=== PATIENT | female | born 1960 | race Caucasian/White ===

== ENCOUNTER 2016-06-20 18:40 | Emergency (ER) | payer BC ==
[2016-06-20 18:58] VITALS: BP 128/75; PULSE 72; TEMP 98; BMI 31.8
--- NOTE | 2016-06-20 19:05 | PDOC ---
History of Present Illness - General History Source: Patient Exam Limitations: No Limitations - History of Present Illness Initial Comments: 06/20/16 19:05 The patient is a 55 year old female with no significant past medical history, who presents to the with bilateral foot pain. Pt was walking across the street when she twisted her foot on the curb. Trying to gain her balance, she twsiterd her other foot. She states the left foot hurts more than the right. Otherwise, patient is healthy and has no other complaints. <Oumar Gordillo - Last Filed: 06/20/16 19:05> <Edis Garland - Last Filed: 06/21/16 00:42> - General Chief Complaint: Injury Stated Complaint: BILATERAL FOOT PAIN Time Seen by Provider: 06/20/16 19:03 Past History <Oumar Gordillo - Last Filed: 06/20/16 19:05> - Past Medical History Other medical history: DENIES - Psycho/Social/Smoking Cessation Hx Anxiety: No Suicidal Ideation: No Smoking History: Never smoked Hx Alcohol Use: No Drug/Substance Use Hx: No Substance Use Type: Alcohol <Edis Garland - Last Filed: 06/21/16 00:42> - Past Medical History Allergies/Adverse Reactions: Allergies Allergy/AdvReac Type Severity Reaction Status Date / Time No Known Allergies Allergy Verified 06/20/16 18:42 Home Medications: Ambulatory Orders No Known Home Medication 06/20/16 Review of Systems - Review of Systems Able to Perform ROS?: Yes Comments:: 06/20/16 19:07 GENERAL/CONSTITUTIONAL: No fever or chills. No weakness. HEAD, EYES, EARS, NOSE AND THROAT: No change in vision. No ear pain or discharge. No sore throat. CARDIOVASCULAR: No chest pain or shortness of breath. RESPIRATORY: No cough, wheezing, or hemoptysis. GASTROINTESTINAL: No nausea, vomiting, diarrhea or constipation. GENITOURINARY: No dysuria, frequency, or change in urination. MUSCULOSKELETAL: + bilateral foot pain. No joint or muscle swelling or pain. No neck or back pain. SKIN: No rash NEUROLOGIC: No headache, vertigo, loss of consciousness, or change in strength/ sensation. ENDOCRINE: No increased thirst. No abnormal weight change. HEMATOLOGIC/LYMPHATIC: No anemia, easy bleeding, or history of blood clots. ALLERGIC/IMMUNOLOGIC: No hives or skin allergy. <Oumar Gordillo - Last Filed: 06/20/16 19:05> *Physical Exam - Vital Signs Last Vital Signs Temp Pulse Resp BP Pulse Ox 98 F 72 18 128/75 100 06/20/16 18:40 06/20/16 18:40 06/20/16 18:40 06/20/16 18:40 06/20/16 18:40 - Physical Exam Comments: 06/20/16 19:07 GENERAL: Awake, alert, and fully oriented, in no acute distress HEAD: No signs of trauma EYES: PERRLA, EOMI, sclera anicteric, conjunctiva clear ENT: Auricles normal inspection, hearing grossly normal, nares patent, oropharynx clear without exudates. Moist mucosa NECK: Normal ROM, supple, no lymphadenopathy, JVD, or masses LUNGS: Breath sounds equal, clear to auscultation bilaterally. No wheezes, and no crackles HEART: Regular rate and rhythm, normal S1 and S2, no murmurs, rubs or gallops ABDOMEN: Soft, nontender, normoactive bowel sounds. No guarding, no rebound. No masses EXTREMITIES: Mid-foot tenderness of the dorsal aspect of the left foot. Normal range of motion, no edema. No clubbing or cyanosis. No cords, erythema. NEUROLOGICAL: Cranial nerves II through XII grossly intact. Normal speech, normal gait SKIN: Warm, Dry, normal turgor, no rashes or lesions noted. <Oumar Gordillo - Last Filed: 06/20/16 19:05> - Vital Signs Last Vital Signs Temp Pulse Resp BP Pulse Ox 98 F 72 18 128/75 100 06/20/16 18:40 06/20/16 18:40 06/20/16 18:40 06/20/16 18:40 06/20/16 18:40 <Edis Garland - Last Filed: 06/21/16 00:42> Medical Decision Making - Medical Decision Making 06/21/16 00:41 plain films -, as read by me, referred to radiology for definitive review. a/p foot sprain analgesia weight bearing as tolerated PMD fu for persistent pain <Edis Garland - Last Filed: 06/21/16 00:42> *DC/Admit/Observation/Transfer - Attestations Scribe Attestion: 06/20/16 19:07 Documentation prepared by Oumar Gordillo, acting as center medical and lab director for Edis Garland MD. <Oumar Gordillo - Last Filed: 06/20/16 19:05> <Edis Garland - Last Filed: 06/21/16 00:42> Diagnosis at time of Disposition: Foot contusion Qualifiers: Encounter type: initial encounter Laterality: left Qualified Code(s): S90.32XA - Contusion of left foot, initial encounter - Discharge Dispostion Disposition: HOME Condition at time of disposition: Stable - Patient Instructions Printed Discharge Instructions: How to Use Crutches
== END 2016-06-20 21:07 | disposition home or self-care (01) ==
LOC: FER 18:40
DX: S90.32XA Contusion of left foot, initial encounter (principal); X58.XXXA Exposure to other specified factors, initial encounter; Y93.89 Activity, other specified; Y92.410 Unspecified street and highway as the place of occurrence of the external cause
CPT/HCPCS: 73630-TC-LT; 99282-25